=== PATIENT | female | born 2000 | race Hispanic/Latino ===

== ENCOUNTER 2025-03-08 01:38 | Day surgery (SDC) | payer OTHER ==
[2025-03-08] MEDS ORDERED: hydrALAZINE 20 MG/ML VIAL SLOW IVP PRN (01:51)
[2025-03-08 03:09] LABS: Glucose, Urine (Dipstick) Normal (Negative); Leukocyte 500 (Negative); Protein, Urine (Dipstick) 100 mg/dl (Neg-Trace); Specific Gravity, Urine 1.020 (1.005-1.030)
[2025-03-08 03:19] LABS: Bacteria/HPF None Seen HPF (None Seen); CAUTI Indications for Culture Dysuria,urgency,freq; WBC/HPF Greater than 50 HPF (0-3)
[2025-03-08 03:20] LABS: Urine Culture Reflex Yes Yes
[2025-03-08 03:59] VITALS: BMI 42.0
[2025-03-08] MEDS: Acetaminophen 500 MG TAB PO SCH (06:27)
[2025-03-09 00:55] LABS: Chlamydia by PCR, Vaginal Swab Not Detected (NotDetected); GC by PCR, Vaginal Swab Not Detected (NotDetected)
== END 2025-03-08 08:05 | disposition home health service (06) ==
LOC: CSHLD/OP 01:38
PROVIDERS: ATTEND Obstetrics & Gynecology
DX: O99.891 Other specified diseases and conditions complicating pregnancy (principal); R30.0 Dysuria; R31.9 Hematuria, unspecified; R10.2 Pelvic and perineal pain; Z3A.28 28 weeks gestation of pregnancy
CPT/HCPCS: 76770; 81001; 87086; 87480; 87491; 87510; 87591; 87660; 99284

== ENCOUNTER 2025-03-15 11:40 | Day surgery (SDC) | payer OTHER ==
[2025-03-15 12:05] VITALS: BMI 41.8
[2025-03-15] MEDS ORDERED: hydrALAZINE 20 MG/ML VIAL SLOW IVP PRN (12:26)
[2025-03-15] MEDS: Lidocaine 2% Viscous Solution 10 ML, Aluminum & Magnesium Hydroxide 30 ML SSW SCH (13:17)
== END 2025-03-15 14:50 | disposition home or self-care (01) ==
LOC: CSHLD/OP 11:40
PROVIDERS: ATTEND Obstetrics & Gynecology
DX: O99.613 Diseases of the digestive system complicating pregnancy, third trimester (principal); K80.20 Calculus of gallbladder without cholecystitis without obstruction; Z3A.29 29 weeks gestation of pregnancy; Z79.899 Other long term (current) drug therapy
CPT/HCPCS: 76705

== ENCOUNTER 2025-03-22 20:01 | Observation (INO) | payer OTHER ==
[2025-03-22 20:23] VITALS: BMI 41.3
[2025-03-22] MEDS ORDERED: hydrALAZINE 20 MG/ML VIAL SLOW IVP PRN (20:53)
[2025-03-22 21:15] LABS: #Basophils 0.03 10x3/uL (0.0-0.2); #Eosinophils 0.04 10x3/uL (0.0-0.5); #Monocytes 0.62 10x3/uL (0.0-1.1); #Neutrophils 5.34 10x3/uL (1.5-8.4); %Basophils 0.4 % (0.0-2.0); %Eosinophils 0.5 % (0.0-6.0); %Lymphocytes 22.3 % (18.0-47.0); %Monocytes 7.9 % (0.0-10.0); %Neutrophils 68.4 % (40.0-75.0); Hematocrit 38.0 % (34.9-44.5); Hemoglobin 12.9 g/dL (12.0-15.5); Mean Corpuscular Hemoglobin 26.9 pg (27.0-33.0); Mean Corpuscular Volume 79.2 fL (81.6-98.3); Platelet Count 273 10x3/uL (150-450); Red Blood Cell (RBC) Count 4.80 10x6/uL (3.90-5.03); White Blood Cell (WBC) Count 7.81 10x3/uL (3.5-10.5)
[2025-03-22] MEDS: Ondansetron PF 4 MG/2 ML Vial IVP SCH (21:20)
[2025-03-22 21:31] LABS: ALT (SGPT) 34 U/L (Less than 34); AST (SGOT) 28 U/L (11-34); Albumin 3.1 g/dL (3.1-4.5); Alkaline Phosphatase 184 U/L (40-110); Anion Gap 12 mmol/L (10-20); BUN (Urea Nitrogen) 7 mg/dL (7.0-18.7); Bilirubin, Total 0.4 mg/dL (0.3-1.2); Calc. Creatinine Clearance 277 mL/min (70-130); Calcium 8.5 mg/dL (7.8-10.44); Carbon Dioxide 21 mmol/L (22-29); Chloride 107 mmol/L (98-107); Globulin 3.7 g/dL (2.4-3.5); Glucose 72 mg/dL (70-105); Potassium 3.6 mmol/L (3.5-5.1); Sodium 136 mmol/L (136-145)
[2025-03-22] MEDS ORDERED: Ondansetron PF 4 MG/2 ML Vial IVP PRN (22:59)
[2025-03-23] MEDS ORDERED: Acetaminophen 500 MG TAB PO PRN (00:53)
== END 2025-03-23 12:46 | disposition home or self-care (01) ==
LOC: CSHLD/OP 20:01 → INTOOBSV 03-23 00:53 → CSHLD 03-23 00:53
PROVIDERS: ADMIT Obstetrics & Gynecology; ATTEND Obstetrics & Gynecology
DX: O26.613 Liver and biliary tract disorders in pregnancy, third trimester (principal); K80.20 Calculus of gallbladder without cholecystitis without obstruction; Z3A.30 30 weeks gestation of pregnancy; Z79.899 Other long term (current) drug therapy
CPT/HCPCS: 80053; 85025; 99285; J2270; J2405

== ENCOUNTER 2025-05-19 20:35 | Inpatient (IN) | payer OTHER ==
[2025-05-19 21:02] VITALS: BMI 43.7
[2025-05-19] MEDS ORDERED: hydrALAZINE 20 MG/ML VIAL SLOW IVP PRN (21:50)
[2025-05-19 22:04] LABS: #Basophils 0.03 10x3/uL (0.0-0.2); #Eosinophils Less than 0.03 10x3/uL (0.0-0.5); #Monocytes 0.76 10x3/uL (0.0-1.1); #Neutrophils 11.17 10x3/uL (1.5-8.4); %Basophils 0.2 % (0.0-2.0); %Eosinophils 0.1 % (0.0-6.0); %Lymphocytes 7.3 % (18.0-47.0); %Monocytes 5.9 % (0.0-10.0); %Neutrophils 86.1 % (40.0-75.0); Hematocrit 41.3 % (34.9-44.5); Hemoglobin 13.5 g/dL (12.0-15.5); Mean Corpuscular Hemoglobin 24.5 pg (27.0-33.0); Mean Corpuscular Volume 75.1 fL (81.6-98.3); Platelet Count 288 10x3/uL (150-450); Red Blood Cell (RBC) Count 5.50 10x6/uL (3.90-5.03); White Blood Cell (WBC) Count 12.96 10x3/uL (3.5-10.5)
[2025-05-19 22:22] LABS: Glucose, Urine (Dipstick) Normal (Negative); Leukocyte 25 (Negative); Protein, Urine (Dipstick) 30 mg/dl (Neg-Trace); Specific Gravity, Urine 1.020 (1.005-1.030)
[2025-05-19 22:32] LABS: Bacteria/HPF 2+ HPF (None Seen); CAUTI Indications for Culture Pelvic or flank pain; RBC/HPF 0-3 HPF (0-3)
[2025-05-19 22:34] LABS: Mucous/LPF 2+ LPF (<2+)
[2025-05-19 22:39] LABS: Urine Culture Reflex No No
[2025-05-19 23:08] LABS: ALT (SGPT) 57 U/L (Less than 34); AST (SGOT) 53 U/L (11-34); Albumin 2.4 g/dL (3.1-4.5); Alkaline Phosphatase 396 U/L (40-110); Anion Gap 14 mmol/L (10-20); BUN (Urea Nitrogen) 8 mg/dL (7.0-18.7); Bilirubin, Total 0.5 mg/dL (0.3-1.2); Calc. Creatinine Clearance 238 mL/min (70-130); Calcium 8.3 mg/dL (7.8-10.44); Carbon Dioxide 21 mmol/L (22-29); Chloride 108 mmol/L (98-107); Globulin 4.1 g/dL (2.4-3.5); Glucose 85 mg/dL (70-105); Potassium 4.9 mmol/L (3.5-5.1); Sodium 138 mmol/L (136-145)
[2025-05-19] MEDS: Ondansetron PF 4 MG/2 ML Vial IVP PRN (23:10)
[2025-05-19] MEDS: Promethazine HCl 25 MG, Admixture Fee 1 EACH in Sodium Chloride 0.9% 50 ML IVPB PRN (23:45)
[2025-05-19 23:46] LABS: Fetal Membranes Rupture No Membranes Rupture (No Rupture)
[2025-05-19 23:47] LABS: Lipase 10467 U/L (8-78)
[2025-05-20] MEDS: cefTRIAXone\\ROCEPHIN 1 GM in Sodium Chloride 0.9% 100 ML IVPB SCH (00:19)
[2025-05-20] MEDS ORDERED: Oxytocin 30 units/NS 500 ML 500 ML IV SCH ×2 (00:30)
[2025-05-20] MEDS ORDERED: Methylergonovine 0.2 MG/ML VIAL IM PRN (00:30)
[2025-05-20] MEDS ORDERED: Diphenoxylate HCl/Atropine Tablet PO PRN ×2 (00:30)
[2025-05-20] MEDS ORDERED: Carboprost 250 MCG/ML AMP IM PRN (00:30)
[2025-05-20] MEDS ORDERED: Ondansetron PF 4 MG/2 ML Vial IVP PRN ×2 (00:30→04:09)
[2025-05-20] MEDS ORDERED: Tranexamic Acid 1,000 MG/10 ML VIAL IVP PRN (00:30)
[2025-05-20] MEDS ORDERED: Ibuprofen 800 MG TAB PO PRN (00:30)
[2025-05-20] MEDS ORDERED: Lidocaine 1% (PF) 30 ML VIAL SC PRN (00:30)
[2025-05-20 01:20] LABS: Hematocrit 37.8 % (34.9-44.5); Hemoglobin 12.0 g/dL (12.0-15.5); Mean Corpuscular Hemoglobin 24.2 pg (27.0-33.0); Mean Corpuscular Volume 76.2 fL (81.6-98.3); Platelet Count 274 10x3/uL (150-450); Red Blood Cell (RBC) Count 4.96 10x6/uL (3.90-5.03); White Blood Cell (WBC) Count 11.29 10x3/uL (3.5-10.5)
[2025-05-20 01:35] LABS: Magnesium 1.7 mg/dL (1.6-2.6)
[2025-05-20 01:56] LABS: Hep B Surf Ag - L&D Non-Reactive S/CO (NonReactive)
[2025-05-20 01:58] LABS: Syphilis Antibody Index 0.03 S/CO (<1.00 Non-Reactive)
[2025-05-20] MEDS: fentaNYL/Ropivacaine Epidural 100 ML ONE (04:03)
[2025-05-20] MEDS ORDERED: Acetaminophen 325 MG TAB PO PRN (04:09)
[2025-05-20] MEDS ORDERED: diphenhydrAMINE 50 MG/ML VIAL IVP PRN (04:09)
[2025-05-20] MEDS ORDERED: Communication Order-Pharmacy FS SCH (04:15)
[2025-05-20] MEDS: fentaNYL 2 mcg/Ropivacaine 0.2% Epidural 100 ML CADD EPIDURAL SCH (16:24)
[2025-05-20] MEDS ORDERED: Bupivacaine 0.25% HCL 30 ML VIAL ONE (19:10)
[2025-05-20 19:48] LABS: ALT (SGPT) 43 U/L (Less than 34); AST (SGOT) 31 U/L (11-34); Albumin 2.2 g/dL (3.1-4.5); Alkaline Phosphatase 361 U/L (40-110); Anion Gap 14 mmol/L (10-20); BUN (Urea Nitrogen) 9 mg/dL (7.0-18.7); Bilirubin, Total 0.5 mg/dL (0.3-1.2); Calc. Creatinine Clearance 230 mL/min (70-130); Calcium 8.0 mg/dL (7.8-10.44); Carbon Dioxide 18 mmol/L (22-29); Chloride 108 mmol/L (98-107); Globulin 3.8 g/dL (2.4-3.5); Glucose 69 mg/dL (70-105); Lipase 941 U/L (8-78); Potassium 4.1 mmol/L (3.5-5.1); Sodium 136 mmol/L (136-145)
[2025-05-20 19:52] LABS: #Basophils Less than 0.03 10x3/uL (0.0-0.2); #Eosinophils Less than 0.03 10x3/uL (0.0-0.5); #Monocytes 0.64 10x3/uL (0.0-1.1); #Neutrophils 9.73 10x3/uL (1.5-8.4); %Basophils 0.2 % (0.0-2.0); %Eosinophils 0.1 % (0.0-6.0); %Lymphocytes 8.3 % (18.0-47.0); %Monocytes 5.6 % (0.0-10.0); %Neutrophils 85.2 % (40.0-75.0); Hematocrit 37.2 % (34.9-44.5); Hemoglobin 12.1 g/dL (12.0-15.5); Mean Corpuscular Hemoglobin 24.5 pg (27.0-33.0); Mean Corpuscular Volume 75.3 fL (81.6-98.3); Platelet Count 250 10x3/uL (150-450); Red Blood Cell (RBC) Count 4.93 10x6/uL (3.90-5.03); White Blood Cell (WBC) Count 11.42 10x3/uL (3.5-10.5)
[2025-05-20] MEDS: Ibuprofen 800 MG TAB PO SCH (22:44)
[2025-05-20] MEDS: HYDROmorphone 0.5 MG/0.5 ML SYRINGE SLOW IVP PRN (22:45)
[2025-05-20] MEDS: cefTRIAXone\\ROCEPHIN 2 GM in Sodium Chloride 0.9% 100 ML IVPB SCH (22:56)
[2025-05-21] MEDS: HYDROmorphone 2 MG TAB PO PRN (00:36)
[2025-05-21 06:44] LABS: ALT (SGPT) 32 U/L (Less than 34); AST (SGOT) 29 U/L (11-34); Albumin 1.8 g/dL (3.1-4.5); Alkaline Phosphatase 289 U/L (40-110); Anion Gap 12 mmol/L (10-20); BUN (Urea Nitrogen) 10 mg/dL (7.0-18.7); Bilirubin, Total 0.4 mg/dL (0.3-1.2); Calc. Creatinine Clearance 257 mL/min (70-130); Calcium 7.7 mg/dL (7.8-10.44); Carbon Dioxide 18 mmol/L (22-29); Chloride 112 mmol/L (98-107); Globulin 3.2 g/dL (2.4-3.5); Lipase 293 U/L (8-78); Potassium 3.7 mmol/L (3.5-5.1); Sodium 138 mmol/L (136-145)
[2025-05-21 07:15] LABS: Glucose 53 mg/dL (70-105)
[2025-05-22 09:45] LABS: #Basophils Less than 0.03 10x3/uL (0.0-0.2); #Eosinophils 0.08 10x3/uL (0.0-0.5); #Monocytes 0.69 10x3/uL (0.0-1.1); #Neutrophils 9.75 10x3/uL (1.5-8.4); %Basophils 0.1 % (0.0-2.0); %Eosinophils 0.7 % (0.0-6.0); %Lymphocytes 7.4 % (18.0-47.0); %Monocytes 6.0 % (0.0-10.0); %Neutrophils 85.4 % (40.0-75.0); Hematocrit 33.5 % (34.9-44.5); Hemoglobin 10.6 g/dL (12.0-15.5); Mean Corpuscular Hemoglobin 24.2 pg (27.0-33.0); Mean Corpuscular Volume 76.5 fL (81.6-98.3); Platelet Count 228 10x3/uL (150-450); Red Blood Cell (RBC) Count 4.38 10x6/uL (3.90-5.03); White Blood Cell (WBC) Count 11.43 10x3/uL (3.5-10.5)
[2025-05-22 10:11] LABS: ALT (SGPT) 20 U/L (Less than 34); AST (SGOT) 24 U/L (11-34); Albumin 2.0 g/dL (3.1-4.5); Alkaline Phosphatase 263 U/L (40-110); Anion Gap 12 mmol/L (10-20); BUN (Urea Nitrogen) 7 mg/dL (7.0-18.7); Bilirubin, Total 0.3 mg/dL (0.3-1.2); Calc. Creatinine Clearance 248 mL/min (70-130); Calcium 8.1 mg/dL (7.8-10.44); Carbon Dioxide 20 mmol/L (22-29); Chloride 110 mmol/L (98-107); Globulin 3.5 g/dL (2.4-3.5); Glucose 55 mg/dL (70-105); Potassium 3.9 mmol/L (3.5-5.1); Sodium 138 mmol/L (136-145)
[2025-05-23] MEDS ORDERED: PROPOFOL 20 ML ONE (10:30)
[2025-05-23] MEDS ORDERED: Lidocaine 1% PF 5 ML VIAL ONE (10:30)
[2025-05-23] MEDS ORDERED: SUGAMMADEX SODIUM 200 MG/2 ML VIAL ONE (10:31)
[2025-05-23] MEDS ORDERED: Rocuronium Bromide 10 MG/ML (10ML VIAL) ONE (10:31)
[2025-05-23] MEDS ORDERED: Glucagon 1 MG/ML KIT ONE (10:37)
[2025-05-23] MEDS ORDERED: Bupivacaine HCl 0.5%/Epinephrine 1:200,000/PF 30 ml Vial ONE (10:37)
[2025-05-23] MEDS ORDERED: CEFAZOLIN 2 GM VIAL ONE (11:01)
[2025-05-23] MEDS ORDERED: SUCCINYLCHOLINE/SOD CL,ISO/PF 200 MG/10 ML SYRINGE FS ONE (11:51)
[2025-05-23] MEDS ORDERED: PHENYLEPHRINE-NS 100 MCG/ML 10 ML SYRINGE ONE (11:51)
[2025-05-23] MEDS ORDERED: Iopamidol 0 ML ONE (12:34)
[2025-05-24 04:39] LABS: #Basophils Less than 0.03 10x3/uL (0.0-0.2); #Eosinophils 0.08 10x3/uL (0.0-0.5); #Monocytes 0.55 10x3/uL (0.0-1.1); #Neutrophils 6.96 10x3/uL (1.5-8.4); %Basophils 0.2 % (0.0-2.0); %Eosinophils 0.9 % (0.0-6.0); %Lymphocytes 14.9 % (18.0-47.0); %Monocytes 6.1 % (0.0-10.0); %Neutrophils 77.5 % (40.0-75.0); Hematocrit 29.0 % (34.9-44.5); Hemoglobin 9.3 g/dL (12.0-15.5); Mean Corpuscular Hemoglobin 24.5 pg (27.0-33.0); Mean Corpuscular Volume 76.5 fL (81.6-98.3); Platelet Count 316 10x3/uL (150-450); Red Blood Cell (RBC) Count 3.79 10x6/uL (3.90-5.03); White Blood Cell (WBC) Count 8.99 10x3/uL (3.5-10.5)
[2025-05-24 04:49] LABS: ALT (SGPT) 26 U/L (Less than 34); AST (SGOT) 29 U/L (11-34); Albumin 1.8 g/dL (3.1-4.5); Alkaline Phosphatase 264 U/L (40-110); Anion Gap 9 mmol/L (10-20); BUN (Urea Nitrogen) 8 mg/dL (7.0-18.7); Bilirubin, Total 0.3 mg/dL (0.3-1.2); Calc. Creatinine Clearance 230 mL/min (70-130); Calcium 7.9 mg/dL (7.8-10.44); Carbon Dioxide 23 mmol/L (22-29); Chloride 112 mmol/L (98-107); Globulin 3.5 g/dL (2.4-3.5); Glucose 80 mg/dL (70-105); Lipase 23 U/L (8-78); Potassium 4.1 mmol/L (3.5-5.1); Sodium 140 mmol/L (136-145)
[2025-05-25 03:50] LABS: #Basophils Less than 0.03 10x3/uL (0.0-0.2); #Eosinophils 0.13 10x3/uL (0.0-0.5); #Monocytes 0.64 10x3/uL (0.0-1.1); #Neutrophils 6.40 10x3/uL (1.5-8.4); %Basophils 0.2 % (0.0-2.0); %Eosinophils 1.5 % (0.0-6.0); %Lymphocytes 16.4 % (18.0-47.0); %Monocytes 7.4 % (0.0-10.0); %Neutrophils 74.0 % (40.0-75.0); Hematocrit 29.4 % (34.9-44.5); Hemoglobin 9.5 g/dL (12.0-15.5); Mean Corpuscular Hemoglobin 24.7 pg (27.0-33.0); Mean Corpuscular Volume 76.4 fL (81.6-98.3); Platelet Count 283 10x3/uL (150-450); Red Blood Cell (RBC) Count 3.85 10x6/uL (3.90-5.03); White Blood Cell (WBC) Count 8.65 10x3/uL (3.5-10.5)
[2025-05-25 04:05] LABS: ALT (SGPT) 22 U/L (Less than 34); AST (SGOT) 19 U/L (11-34); Albumin 1.8 g/dL (3.1-4.5); Alkaline Phosphatase 220 U/L (40-110); Bilirubin, Direct 0.2 mg/dL (0.1-0.3); Bilirubin, Total 0.3 mg/dL (0.3-1.2); Lipase 26 U/L (8-78)
[2025-05-25 07:52] VITALS: BP 119/71; TEMP 98.2
[2025-05-25] MEDS: Acetaminophen 325 MG TAB PO PRN (10:20)
== END 2025-05-25 20:10 | disposition home or self-care (01) | DRG 768 ==
LOC: CSHLD/OP 20:35 → CSHLD 05-20 00:51 → CSHPP 05-21 17:50
PROVIDERS: ADMIT Obstetrics & Gynecology; ATTEND Obstetrics & Gynecology
PROC: 10E0XZZ Delivery of Products of Conception, External Approach (ICD-10-PCS; principal; 2025-05-20)
PROC: 4A02XCZ Measurement of Cardiac Rate, External Approach (ICD-10-PCS; 2025-05-20)
PROC: 0FT44ZZ Resection of Gallbladder, Percutaneous Endoscopic Approach (ICD-10-PCS; 2025-05-23)
PROC: BF522Z0 Other Imaging of Gallbladder using Fluorescing Agent, Intraoperative (ICD-10-PCS; 2025-05-23)
PROC: 3E03329 Introduction of Other Anti-infective into Peripheral Vein, Percutaneous Approach (ICD-10-PCS; 2025-05-23)
PROC: 3E0234Z Introduction of Serum, Toxoid and Vaccine into Muscle, Percutaneous Approach (ICD-10-PCS; 2025-05-23)
DX: O99.62 Diseases of the digestive system complicating childbirth (principal); Z37.0 Single live birth; K85.10 Biliary acute pancreatitis without necrosis or infection; N13.6 Pyonephrosis; O98.82 Other maternal infectious and parasitic diseases complicating childbirth; Z3A.38 38 weeks gestation of pregnancy; Z23 Encounter for immunization
CPT/HCPCS: 36415; 36416; 47532; 51702; 74181; 76376; 76705; 80053; 80076; 81001; 83690; 83735; 84112; 85025; 85027; 86780; 86850; 86900; 86901; 87070; 87086; 87205; 87340; 87480; 87510; 87660; 88304; 99285; C1889; J0665; J0696; J1100; J1171; J1611; J2270; J2543; J2550; J2704; J3010; J3105; J7030; J7042; Q9967; S8037